=== PATIENT | female | born 1960 | race Caucasian/White ===

== ENCOUNTER 2016-12-18 08:02 | Emergency (ER) | payer MEDICARE, MEDICAID ==
[~2016-12-18] VITALS: Ht 157.5 cm; Wt 68.2 kg
[~2016-12-18 08:02] MED LIST: AMLO-511 PO; LORA1TAB3 PO; LOSA25TA21 PO; LURA80 PO; METF500T4 PO; OLAN7.5T2 PO; TOPI100T37 PO; TRAZ-147 PO
[2016-12-18 08:12] LABS: GLUCOSE,POINT OF CARE 204 MG/DL (70-110)
[2016-12-18 08:39] VITALS: BP 149/88
[2016-12-18] MEDS ORDERED: IBUPROFEN 600 MG TABLET PO ONE (09:00)
== END 2016-12-18 09:22 | disposition home or self-care (01) ==
LOC: EMS 08:04
DX: G56.01 Carpal tunnel syndrome, right upper limb (principal); E11.9 Type 2 diabetes mellitus without complications; I10 Essential (primary) hypertension; F17.210 Nicotine dependence, cigarettes, uncomplicated; Z95.0 Presence of cardiac pacemaker
CPT/HCPCS: 82962; 99282

== ENCOUNTER 2017-03-17 13:29 | Emergency (ER) | payer MEDICARE, OTHER ==
[~2017-03-17] VITALS: Ht 157.5 cm; Wt 63.6 kg
[~2017-03-17 13:29] MED LIST changes: -AMLO-511 PO; -LORA1TAB3 PO; -TRAZ-147 PO
[2017-03-17] MEDS ORDERED: GLIP5 PO (13:56)
[2017-03-17 14:07] LABS: GLUCOSE,POINT OF CARE 191 MG/DL (70-110)
[2017-03-17 15:37] VITALS: BP 140/82
== END 2017-03-17 16:27 | disposition home or self-care (01) ==
LOC: EMS 13:32
DX: J11.1 Influenza due to unidentified influenza virus with other respiratory manifestations (principal); I10 Essential (primary) hypertension; F20.9 Schizophrenia, unspecified; E11.9 Type 2 diabetes mellitus without complications; F17.210 Nicotine dependence, cigarettes, uncomplicated; Z79.899 Other long term (current) drug therapy
CPT/HCPCS: 82962; 99283

== ENCOUNTER 2017-06-27 09:55 | Emergency (ER) | payer MEDICARE, OTHER ==
[~2017-06-27] VITALS: Ht 157.5 cm; Wt 70.0 kg
[~2017-06-27 09:55] MED LIST changes: +GLIP5 PO
[2017-06-27 10:17] LABS: GLUCOSE,POINT OF CARE 252 MG/DL (70-110)
[2017-06-27 12:40] VITALS: BP 100/80
== END 2017-06-27 13:02 | disposition home or self-care (01) ==
LOC: EMS 09:56
DX: J02.9 Acute pharyngitis, unspecified (principal); J06.9 Acute upper respiratory infection, unspecified; E11.9 Type 2 diabetes mellitus without complications; I10 Essential (primary) hypertension; F17.210 Nicotine dependence, cigarettes, uncomplicated; Z95.0 Presence of cardiac pacemaker
CPT/HCPCS: 82962; 87430; 99283

== ENCOUNTER 2017-08-19 14:46 | Emergency (ER) | payer MEDICARE, OTHER ==
[~2017-08-19] VITALS: Ht 157.5 cm; Wt 75.0 kg
[~2017-08-19 14:46] MED LIST changes: -METF500T4 PO; +METF500T6 PO
[2017-08-19 14:58] VITALS: BP 133/93
== END 2017-08-19 16:49 | disposition home or self-care (01) ==
LOC: EMS 14:48
DX: B30.9 Viral conjunctivitis, unspecified (principal); I10 Essential (primary) hypertension; E11.9 Type 2 diabetes mellitus without complications; F17.210 Nicotine dependence, cigarettes, uncomplicated
CPT/HCPCS: 99282

== ENCOUNTER 2018-07-17 09:10 | Emergency (ER) | payer MEDICARE, OTHER ==
[~2018-07-17] VITALS: Ht 162.6 cm; Wt 72.7 kg
[~2018-07-17 09:10] MED LIST changes: -LOSA25TA21 PO; +LOSA25TA41 PO; +METF-960 PO; -METF500T6 PO
[2018-07-17] MEDS ORDERED: LOSA25TA41 PO (09:19)
[2018-07-17] MEDS ORDERED: ASPI81 PO (09:19)
[2018-07-17] MEDS ORDERED: RANO500T3 PO (09:19)
[2018-07-17] MEDS ORDERED: ISOS10TA16 PO (09:19)
[2018-07-17] MEDS ORDERED: BENZ-51 PO (09:19)
[2018-07-17] MEDS ORDERED: LORA2TAB2 PO (09:19)
[2018-07-17] MEDS ORDERED: ATOR10TA84 PO (09:19)
[2018-07-17] MEDS ORDERED: TRAZ-220 PO (09:19)
[2018-07-17 09:24] LABS: GLUCOSE,POINT OF CARE 449 MG/DL (70-110)
[2018-07-17] MEDS ORDERED: SODIUM CHLORIDE 0.9% 1,000 ML IV ONE (10:00)
[2018-07-17] MEDS ORDERED: INSULIN REGULAR, HUMAN 100 UNITS/ML SQ ONE (10:45)
[2018-07-17 11:49] LABS: GLUCOSE,POINT OF CARE 353 MG/DL (70-110)
[2018-07-17 12:54] VITALS: BP 120/73
== END 2018-07-17 12:57 | disposition home or self-care (01) ==
LOC: EMS 09:11
DX: J06.9 Acute upper respiratory infection, unspecified (principal); E11.65 Type 2 diabetes mellitus with hyperglycemia; I10 Essential (primary) hypertension; F20.9 Schizophrenia, unspecified; Z79.82 Long term (current) use of aspirin
CPT/HCPCS: 71045; 82962; 96360; 96372; 99283; J1815; J7030